=== PATIENT | female | born 1995 | race Caucasian/White ===

== ENCOUNTER 2016-12-23 21:08 | Emergency (ER) | payer OTHER ==
[2016-12-23 21:24] VITALS: O2SAT 97
[2016-12-23 22:19] LABS: RBC URINE 13602 /hpf (0-3); URINE BACTERIA OCC (<OCC); URINE BILIRUBIN NEGATIVE (NEGATIVE); URINE BLOOD 3+ (NEGATIVE); URINE COLOR Red (YELLOW); URINE GLUCOSE (UA) NORMAL (Normal); URINE KETONE NEGATIVE (NEGATIVE); URINE LEUKOCYTE ESTERASE 1+ Leu/uL (Negative); URINE PROTEIN 2+ mg/dL (NEGATIVE); URINE UROBILINOGEN NORMAL mg/dL (0.2-1.0); WBC URINE 20 /hpf (0-5)
[2016-12-23] MEDS ORDERED: Apap-Butalbital-Caffeine 325-50-40mg Tab PO STA (23:20)
[2016-12-23] MEDS ORDERED: Apap-Butalbital-Caffeine 325-50-40mg Tab ONE (23:24)
--- NOTE | 2016-12-24 00:01 | C.PDOC ---
History Of Present Illness Pt c/o frontal headache. Time Seen by Provider: 12/23/16 22:54 Chief Complaint (Nursing): Headache History Per: Patient Onset/Duration Of Symptoms: Days (4), Waxing/Waning, Gradual Current Symptoms Are (Timing): Still Present Severity: Moderate Quality: Other (Throbbing) Preceeding Symptoms: Visual Disturbances, Known Migraine Symptoms Associated Symptoms: Photophobia, Nausea Additional History Per: Prior Records Past Medical History Reviewed: Historical Data, Nursing Documentation, Vital Signs Vital Signs: Last Vital Signs Temp 98.3 F 12/23/16 21:21 Pulse 82 12/23/16 21:21 Resp 22 12/23/16 21:21 BP 135/89 12/23/16 21:21 Pulse Ox 97 12/23/16 21:21 - Medical History PMH: Migraine Surgical History: No Surg Hx Family History: States: Unknown Family Hx - Social History Hx Tobacco Use: No Hx Alcohol Use: No Hx Substance Use: No - Immunization History Hx Tetanus Toxoid Vaccination: No Hx Influenza Vaccination: Yes Hx Pneumococcal Vaccination: No Review Of Systems Except As Marked, All Systems Reviewed And Found Negative. Constitutional: Negative for: Fever, Weakness ENT: Positive for: Other (Sneezing). Negative for: Throat Pain Cardiovascular: Negative for: Chest Pain Respiratory: Negative for: Cough, Shortness of Breath Gastrointestinal: Negative for: Vomiting, Abdominal Pain Genitourinary: Positive for: Vaginal Bleeding (currently having menstrual period ). Negative for: Dysuria Musculoskeletal: Positive for: Back Pain. Negative for: Neck Pain Skin: Negative for: Rash Neurological: Negative for: Weakness, Numbness, Seizures, Altered Mental Status Physical Exam - Physical Exam Appears: Non-toxic, No Acute Distress Skin: Normal Color, Warm, Dry, No Rash Head: Atraumatic, Normacephalic Eye(s): bilateral: Normal Inspection, PERRL, EOMI Neck: Normal ROM, Supple Cardiovascular: Rhythm Regular Respiratory: Normal Breath Sounds, No Accessory Muscle Use Gastrointestinal/Abdominal: Soft, No Tenderness Back: No CVA Tenderness Extremity: Normal ROM Neurological/Psych: Oriented x3, Normal Speech, Normal Cognition, Normal Cranial Nerves, No Cerebellar Signs, Normal Motor, Normal Sensation ED Course And Treatment - Laboratory Results Urine POC: Negative O2 Sat by Pulse Oximetry: 97 Pulse Ox Interpretation: Normal Progress Note: Pt feels much better and wants to go home. Reassessment Condition: Improved Disposition Counseled Patient/Family Regarding: Studies Performed, Diagnosis, Need For Followup, Rx Given - Disposition Referrals: Alan Comer MD [Staff Provider] - Disposition: HOME/ ROUTINE Disposition Time: 00:04 Condition: IMPROVED Additional Instructions: Follow up with a Neurologist for further evaluation and treatment. Return to the ER if you develop fever, vomiting, neck stiffness, weakness, numbness, severe headache, worsening of symptoms or if you have any other concerns. Prescriptions: Acetaminophen/Butalbital/Caf [Fioricet] 1 tab PO TID PRN #20 tab PRN Reason: Headache Loratadine [Claritin] 10 mg PO DAILY PRN #30 tab PRN Reason: Allergy Symptoms Instructions: General Headache (ED) - Clinical Impression Clinical Impression: Frontal headache
[2016-12-24 00:06] VITALS: BP 114/74; PULSE 69; RESP 18; TEMP 97.7
== END 2016-12-24 00:14 | disposition home or self-care (01) ==
LOC: C.ER 21:08
DX: R51 Headache (principal)